=== PATIENT | female | born 1985 | race Caucasian/White ===

== ENCOUNTER 2018-01-07 11:16 | Emergency (ER) | payer MEDICAID ==
[~2018-01-07] VITALS: Ht 162.6 cm; Wt 49.9 kg
[2018-01-07 11:16] VITALS: BP 122/79
[2018-01-07 11:42] LABS: APPEARANCE,URINE Clear (CLEAR); BILIRUBIN,URINE Negative (NEGATIVE); BLOOD, URINE Trace-lysed Ery/uL (NEGATIVE); COLOR,URINE Yellow (YELLOW); KETONES,URINE Negative (NEGATIVE); LEUKOCYTE ESTERASE ,URINE Trace (NEGATIVE); NITRITE, URINE Negative (NEGATIVE); PH,URINE 5.5 (5.0-8.0); PROTEIN,URINE Negative (NEGATIVE); UGLUCOSE Negative (NEGATIVE); UROBILINOGEN,URINE 0.2 EU/dL (0.2)
[2018-01-07 12:03] LABS: BACTERIA,URINE Rare /HPF (None Seen); RBC,URINE 0-2 /HPF (0-2); SQUAMOUS EPITHELIAL CELL,UR Few /HPF (None Seen); WBC,URINE 0-2 /HPF (0-3)
--- NOTE | 2018-01-12 18:15 | NUR ---
CALLED AT [phone]; AND LEFT A MESSAGE- FOR HER TO CALL BACK. PLAN: WILL SEND A REGISTRED MAIL IF SHE DOES NOT RESPOND
--- NOTE | 2018-01-13 13:11 | NUR ---
CALLED AT [phone]; AND LEFT A MESSAGE- FOR HER TO CALL BACK - second time PLAN: WILL SEND A REGISTRED MAIL today to [address] [place] [address]. [id number] [facility]. [id number]
== END 2018-01-07 12:33 | disposition home or self-care (01) ==
LOC: ER 11:26
DX: R30.0 Dysuria (principal)
CPT/HCPCS: 81001; 84703; 87491; 87591; 99284; A4606; Z7610; 81000-TC

== ENCOUNTER 2018-10-21 13:37 | Emergency (ER) | payer MEDICAID ==
[~2018-10-21] VITALS: Ht 162.6 cm; Wt 46.7 kg
[2018-10-21 13:37] VITALS: BP 119/77
[2018-10-21] MEDS ORDERED: IBUPROFEN 600 MG TABLET PO ONE ×2 (14:24→14:30)
--- NOTE | 2018-10-21 15:13 | NUR ---
ORAL TEMP ON D/C IS 98.4F.
== END 2018-10-21 15:14 | disposition home or self-care (01) ==
LOC: ER 13:43
DX: J06.9 Acute upper respiratory infection, unspecified (principal)
CPT/HCPCS: 99282; A4606